=== PATIENT | female | born 1935 | race Hispanic/Latino ===

== ENCOUNTER 2017-08-23 11:36 | Inpatient (IN) | payer MEDICARE, OTHER ==
--- NOTE | 2017-08-23 11:46 | ED PDOC ---
Arrival/HPI - General Time Seen by Provider: 08/23/17 11:41 Historian: Patient - History of Present Illness Narrative History of Present Illness (Text): 08/23/17 11:46 A 81 year old female, whose past medical history includes hypertension, emphysema, right knee replacement, presents to the emergency department complaining of left hip and groin pain after mechanical fall prior to arrival. Patient reports she tripped and fell injuring her left side. She notes difficulty ambulating after fall. Patient denies any other injuries, loss of consciousness, head trauma, headache, dizziness, neck pain, nausea, vomiting, abdominal pain, back pain, chest pain, shortness of breath or any other complaints. PMD: Dr. Priest Time/Duration: Prior to Arrival Context: Tripped Past Medical History - Provider Review Nursing Documentation Reviewed: Yes - Cardiac Hx Hypertension: Yes - Pulmonary Hx Respiratory Disorders: Yes Hx Emphysema: Yes (" I NEVER SMOKED.") - Neurological Hx Neurological Disorder: No - HEENT Hx HEENT Disorder: No - Renal Hx Renal Disorder: No - Endocrine/Metabolic Hx Endocrine Disorders: No - Hematological/Oncological Hx Blood Disorders: No - Integumentary Hx Dermatological Disorder: No - Musculoskeletal/Rheumatological Hx Musculoskeletal Disorders: Yes Hx Arthritis: Yes Hx Degenerative Joint Disease: Yes Other/Comment: HX: DJD RIGHT KNEE - Gastrointestinal Hx Gastrointestinal Disorders: Yes Hx Gall Bladder Disease: Yes Hx Gastroesophageal Reflux: Yes - Genitourinary/Gynecological Hx Genitourinary Disorders: Yes Other/Comment: HX: FIBROID UTERUS - Psychiatric Hx Psychophysiologic Disorder: No Hx Emotional Abuse: No Hx Physical Abuse: No Hx Substance Use: No - Surgical History Hx Appendectomy: Yes Hx Cholecystectomy: Yes Hx Hysterectomy: Yes (PARTIAL HYSTERECTOMY) - Anesthesia Hx Anesthesia: Yes Hx Anesthesia Reactions: Yes (N/V) Hx Malignant Hyperthermia: No - Suicidal Assessment Feels Threatened In Home Enviroment: No Family/Social History - Physician Review Nursing Documentation Reviewed: Yes Family/Social History: No Known Family HX Smoking Status: Never Smoked Hx Alcohol Use: No Hx Substance Use: No Allergies/Home Meds Allergies/Adverse Reactions: Allergies No Known Allergies Allergy (Verified 08/23/17 12:03) Home Medications: Home Meds Medication Instructions Recorded Confirmed Esomeprazole Magnesium [Nexium] 40 mg PO DAILY 03/30/15 08/23/17 Furosemide [Lasix] 40 mg PO DAILY 03/30/15 08/23/17 Albuterol HFA [Ventolin HFA 90 2 puff IH DAILY 05/17/16 08/23/17 mcg/actuation (8 g)] Bisoprolol [Zebeta] 5 mg PO BID 05/17/16 08/23/17 Budesonide [Pulmicort Flexhaler] 180 mcg IH DAILY 05/17/16 08/23/17 Multivitamin [Multivitamins] 1 each PO DAILY 05/17/16 08/23/17 Temazepam [Restoril] 30 mg PO HS 05/17/16 08/23/17 Valsartan [Diovan] 160 mg PO DAILY 05/17/16 08/23/17 Review of Systems - Physician Review All systems were reviewed & negative as marked: Yes - Review of Systems Respiratory: absent: SOB Cardiovascular: absent: Chest Pain Gastrointestinal: absent: Abdominal Pain, Nausea, Vomiting Musculoskeletal: Other (left hip and groin pain). absent: Back Pain, Neck Pain Neurological: absent: Headache, Dizziness Physical Exam Vital Signs Reviewed: Yes Vital Signs Temp Pulse Resp BP Pulse Ox 08/23/17 11:44 97.4 F L 64 14 153/73 H 99 Temperature: Afebrile Blood Pressure: Hypertensive Pulse: Regular Respiratory Rate: Normal Appearance: Positive for: Well-Appearing, Non-Toxic, Comfortable Pain Distress: None Mental Status: Positive for: Alert and Oriented X 3 - Systems Exam Head: Present: Atraumatic, Normocephalic Pupils: Present: PERRL Extroacular Muscles: Present: EOMI Conjunctiva: Present: Normal Mouth: Present: Moist Mucous Membranes Neck: Present: Normal Range of Motion Respiratory/Chest: Present: Clear to Auscultation, Good Air Exchange. No: Respiratory Distress, Accessory Muscle Use Cardiovascular: Present: Regular Rate and Rhythm, Normal S1, S2. No: Murmurs Abdomen: Present: Normal Bowel Sounds. No: Tenderness, Distention, Peritoneal Signs Back: Present: Normal Inspection Upper Extremity: Present: Normal Inspection. No: Cyanosis, Edema Lower Extremity: Present: NORMAL PULSES, Tenderness (Left hip and groin tenderness), Neurovascularly Intact, Other (Left leg shortened and internally rotated). No: Edema, CALF TENDERNESS, Normal ROM (pain with movment), Swelling , Erythema, Temperature Abnormalties Neurological: Present: GCS=15, CN II-XII Intact, Speech Normal Skin: Present: Warm, Dry, Normal Color. No: Rashes Psychiatric: Present: Alert, Oriented x 3, Normal Insight, Normal Concentration Medical Decision Making ED Course and Treatment: 08/23/17 11:46 Impression: A 81 year old female with left hip and groin pain after mechanical fall Plan: -- Left hip xray -- Toradol -- Reassess and disposition Progress Notes: - RAD Interpretation Radiology Orders: 08/23/17 11:47 HIP MIN 2V W/ PELVIS LT [RAD] Stat - Medication Orders Current Medication Orders: Discontinued Medications Ketorolac Tromethamine (Toradol) 15 mg IVP STAT STA Stop: 08/23/17 11:49 Last Admin: 08/23/17 12:28 Dose: 15 mg MAR Pain Assessment Document 08/23/17 12:28 SF (Rec: 08/23/17 12:28 SF [id number] Pain Reassessment Is this a pain reassessment? Yes Sleep Is patient sleeping during reassessment? No Presence of Pain Presence of Pain Yes IVP Administration Document 08/23/17 12:28 SF (Rec: 08/23/17 12:28 SF [facility] [id number]) Charges for Administration # of IVP Administrations 1 Disposition/Present on Arrival - Present on Arrival Any Indicators Present on Arrival: No History of DVT/PE: No History of Uncontrolled Diabetes: No Urinary Catheter: No History Surgical Site Infection Following: None - Disposition Have Diagnosis and Disposition been Completed?: Yes Diagnosis: Pelvis fracture Disposition: HOME/ ROUTINE Disposition Time: 13:30 Patient Plan: Discharge Condition: STABLE Referrals: [facility], [Non-Staff] - Follow up with primary
--- NOTE | 2017-08-23 13:26 | RAD ---
PROCEDURE: Left Hip and pelvis X-ray Radiographs. HISTORY: fall COMPARISON: None. FINDINGS: BONES: There is a displaced subcapital hip fracture on the left. JOINTS: Normal. SOFT TISSUES: Normal. OTHER FINDINGS: None. IMPRESSION: Displaced subcapital hip fracture on the left
[2017-08-23 14:42] LABS: BASO # 0.01 K/mm3 (0.0-2.0); BASO % 0.1 % (0.0-3.0); EOS % 0.1 % (1.5-5.0); GRAN # 11.06 (1.4-6.5); GRAN % 88.4 % (50.0-68.0); HEMOGLOBIN 13.4 g/dL (12.0-16.0); LYMPH % 7.9 % (22.0-35.0); MEAN CELL VOLUME 93.8 fl (80.0-105.0); MEAN CORPUSCULAR HEMOGLOBIN 29.7 pg (25.0-35.0); MEAN CORPUSCULAR HGB CONC 31.7 g/dl (31.0-37.0); MEAN PLATELET VOLUME 9.7 fl (7.0-11.0); MONO # 0.4 (0.1-0.6); MONO % 3.5 % (1.0-6.0); RBC 4.51 10^6/uL (3.5-6.1); RED CELL DISTRIBUTION WIDTH 14.6 % (11.5-14.5); URINE BILIRUBIN NEGATIVE (NEGATIVE); URINE BLOOD MODERATE (NEGATIVE); URINE GLUCOSE (UA) NEGATIVE (NEGATIVE); URINE LEUKOCYTE ESTERASE NEGATIVE Leu/uL (NEGATIVE); URINE NITRATE NEGATIVE (NEGATIVE); URINE PROTEIN NEGATIVE mg/dL (<30 mg/dL); URINE UROBILINOGEN 0.2 E.U./dL (<1 E.U./dL); WHITE BLOOD COUNT 12.5 10^3/ul (4.5-11.0)
[2017-08-23 14:46] LABS: URINE APPEARANCE CLEAR (CLEAR); URINE COLOR YELLOW (YELLOW)
[2017-08-23 14:52] LABS: ALB/GLOB RATIO 1.4 (1.1-1.8); ALBUMIN 4.1 g/dL (3.0-4.8); ALT/SGPT 33 U/L (7-56); AST/SGOT 25 U/L (14-36); BLOOD UREA NITROGEN 24 mg/dL (7-21); CALCIUM 9.9 mg/dL (8.4-10.5); GFR AFRICAN-AMERICAN > 60; GFR NON-AFRICAN AMERICAN 53
[2017-08-23 14:57] LABS: INR 0.89 (0.93-1.08); PROTHROMBIN TIME 10.1 SECONDS (9.4-12.5)
[2017-08-23 15:07] LABS: URINE RBC 0 - 2 /hpf (0-2); URINE WBC NEGATIVE /hpf (0-6)
[2017-08-23] MEDS ORDERED: Potassium Chloride 20 mEq ER Tab PO STA (15:18)
[2017-08-23] MEDS: Pantoprazole 20 mg EC Tab PO SCH (16:06)
[2017-08-23 16:14] VITALS: BMI 27.4
[2017-08-23] MEDS ORDERED: Pneumococcal 23-Valent Vaccine IM ONE (16:14)
[2017-08-23] MEDS ORDERED: Influenza Vaccine 60 mcg/0.5 mL SYR (4YR UP) IM ONE (16:14)
--- NOTE | 2017-08-23 16:19 | RAD ---
HISTORY: fall COMPARISON: 05/08/2016 FINDINGS: LUNGS: No active pulmonary disease. PLEURA: No significant pleural effusion identified, no pneumothorax apparent. CARDIOVASCULAR: Normal. OSSEOUS STRUCTURES: No significant abnormalities. VISUALIZED UPPER ABDOMEN: Normal. OTHER FINDINGS: None. IMPRESSION: No active disease.
--- NOTE | 2017-08-23 17:01 | CT ---
PROCEDURE: CT of the left hip HISTORY: left hip: left hip fracture COMPARISON: Plain film same day TECHNIQUE: Radiation dose: Total exam DLP = 393 mGy-cm. This CT exam was performed using one or more of the following dose reduction techniques: Automated exposure control, adjustment of the mA and/or kV according to patient size, and/or use of iterative reconstruction technique. FINDINGS: There is a displaced angulated subcapital hip fracture on the left. There is no evidence of acetabular fracture. There is no soft tissue hematoma. IMPRESSION: There is a displaced angulated subcapital hip fracture on the left.
[2017-08-23] MEDS: Morphine 2 mg/ml ISec IVP PRN ×2 (17:08→22:30)
[2017-08-23] MEDS: Sodium Chloride 0.9% 1,000 ML IV SCH (17:08)
--- NOTE | 2017-08-23 18:27 | CARD ---
APPROVED REPORT EKG Measurement Heart [id number] <Conclusion> Sinus bradycardia Septal infarct, age undetermined Abnormal ECG
[2017-08-23] MEDS: Albuterol-Ipratrop 3 mg / 0.5 (3 ml) UD IH SCH (19:45)
[2017-08-23] MEDS: Budesonide 0.25 mg/2 ml Inhal Susp UD IH SCH (19:45)
--- NOTE | 2017-08-23 23:48 | HP ---
HISTORY OF PRESENT ILLNESS: The patient is in the emergency room. The patient was brought in by the ambulance to the emergency room. She had a fall in her own bedroom and she fractured her left hip. The patient is in pain. The patient was unable to get out of the floor, but she was able to call for help. She was evaluated in the emergency room. The x-ray shows evidence of fracture of the left hip. The patient's orthopedic surgeon is Dr. Reddy. Dr. Reddy is the orthopedic surgeon, he was notified, the patient is admitted to medical floor. PAST MEDICAL HISTORY: Significant that she has a history of hypertension, chronic obstructive lung disease, gastritis. The patient has history of uterine fibroids. The patient also has a history of recurrent respiratory infections. The patient was treated in the past for total knee replacement on the right side. The patient was on Lovenox post surgery. The patient is not on any antibiotics at this time. PHYSICAL EXAMINATION: GENERAL: She is lying in bed, comfortable. She is pleasant, but she stated that she has pain, for which she has received pain medication. The patient is conscious, rational, oriented. The patient is able to answer all questions. HEAD: Normocephalic. NECK: Carotid pulses are present. The patient's thyroid is not enlarged clinically. LUNGS: Trachea is central. Breath sounds are vesicular. Breath sounds are diminished bilaterally. No rhonchi and no crepitations at this time. HEART: Normal sinus rhythm. S1, S2 present. No murmurs. VITAL SIGNS: The patient's pulse is 64, blood pressure 153/73, respirations are 14, O2 sat 99% on room air. ABDOMEN: Soft. Liver and spleen are not palpable. No ascites. No masses. No tenderness. WING SCORER: She is conscious, rational, oriented as mentioned. The patient's cranial nerves are intact from II through XII. She has sense of smell. Motor and sensory functions are within normal limits. The patient's cerebellar functions were within normal limits prior to the fall. The patient was ambulating pretty well. LABORATORY DATA: Blood work done in the emergency room shows that the hemoglobin [place] 13.4[place] [address], differential 88% polymorphonuclear leukocytes. The patient's chemistry; the sodium is 141, potassium is 3.3. The patient's BUN is 34, creatinine is 1.0. All other chemical parameters are within the normal range. Chest x-ray is clear. The patient's EKG is normal sinus rhythm, has no acute findings. The patient's coagulation study, the PT/INR is within normal limits. IMPRESSION AND PLAN: The patient is evaluated and the patient is medically cleared for hip surgery. The patient will be seen by the orthopedic surgeon and the procedure will be performed. At this time, the patient will be placed on her medications. The patient is on multiple medications; 1. The patient takes losartan 100 mg daily. 2. The patient is on albuterol q. 6 hours p.r.n. inhalation therapy. 3. The patient is on Pulmicort twice a day. 4. The patient is on Lovenox, which is given to the patient to prevent deep venous thrombosis. 5. Lasix 40 mg daily. 6. Potassium chloride 10 mEq. We will increase it to 20 mEq daily because the potassium is low. 7. The patient will be placed on Protonix 20 mg IV daily. 8. The patient will be on 2 g sodium heart-healthy diet. At the time of the surgery, the patient's food will be restricted. Overall prognosis is guarded. Condition is clinically stable. We will follow after the procedure hopefully in the morning. Maya Priest MD
[2017-08-24] MEDS: Albuterol-Ipratrop 3 mg / 0.5 (3 ml) UD IH SCH ×4 (02:51→20:23)
[2017-08-24] MEDS: Pantoprazole 20 mg EC Tab PO SCH ×2 (05:06→17:06)
[2017-08-24] MEDS: Sodium Chloride 0.9% 1,000 ML IV SCH ×2 (05:07→17:07)
[2017-08-24] MEDS ORDERED: Bupivacaine 0.5% Inj(30mL) ONE (07:22)
[2017-08-24] MEDS ORDERED: Succinylcholine 200 mg/10 ml Inj IV ONE (07:39)
[2017-08-24] MEDS ORDERED: Rocuronium 10 mg/ml (5 ml) ONE (07:39)
[2017-08-24] MEDS ORDERED: Propofol 10 mg/ml Inj (20 ML) ONE (07:39)
[2017-08-24] MEDS ORDERED: Lidocaine 2% Inj (20ml) ONE (07:40)
[2017-08-24] MEDS ORDERED: Etomidate 20 mg/10ml Inj IV ONE (07:40)
[2017-08-24] MEDS: Budesonide 0.25 mg/2 ml Inhal Susp UD IH SCH ×2 (07:42→20:26)
--- NOTE | 2017-08-24 07:45 | CP.PCM.CON ---
History of Present Illness - History of Present Illness History of Present Illness: Orthopedic consultation for Dr. Reddy 81 F complains of left hip pain after falling at home. Patient denies LOC, headache, back pain, neck pain or pain in other extremities. Denies numbness and tingling, chest pain or SOB. NKDA Review of Systems - Review of Systems All systems: reviewed and no additional remarkable complaints except - Cardiovascular Cardiovascular: As Per HPI - Respiratory Respiratory: As Per HPI - Musculoskeletal Musculoskeletal: As Per HPI - Neurological Neurological: As Per HPI - Hematologic/Lymphatic Hematologic: absent: As Per HPI, Easy Bleeding, Easy Bruising, Lymphadenopathy, Other Past Patient History - Infectious Disease Hx of Infectious Diseases: None - Past Medical History & Family History Past Medical History?: Yes Past Family History: Reviewed and not pertinent - Past Social History Smoking Status: Never Smoked - CARDIAC Hx Cardiac Disorders: Yes Hx Hypertension: Yes - PULMONARY Hx Respiratory Disorders: Yes Hx Chronic Obstructive Pulmonary Disease (COPD): Yes Hx Emphysema: Yes (" I NEVER SMOKED." 2ND HAND SMOKE) - NEUROLOGICAL Hx Neurological Disorder: No - HEENT Hx HEENT Problems: Yes (WEARS RX GLASSES) - RENAL Hx Chronic Kidney Disease: No - ENDOCRINE/METABOLIC Hx Endocrine Disorders: No - HEMATOLOGICAL/ONCOLOGICAL Hx Blood Disorders: No - INTEGUMENTARY Hx Dermatological Problems: No - MUSCULOSKELETAL/RHEUMATOLOGICAL Hx Musculoskeletal Disorders: Yes Hx Arthritis: Yes Hx Degenerative Joint Disease: Yes Hx Falls: Yes (08-23-17) Hx Fractures: Yes (LEFT HIP FX 08-23-17) Hx Osteoarthritis: Yes Other/Comment: HX: DJD RIGHT KNEE - GASTROINTESTINAL Hx Gastrointestinal Disorders: Yes (CONSTIPATION,APPENDECTOMY,POLYPECTOMY, TONSILLECTOMY) Hx Gall Bladder Disease: Yes (CHOLECYSTECTOMY) Hx Gastroesophageal Reflux: Yes - GENITOURINARY/GYNECOLOGICAL Hx Genitourinary Disorders: Yes (WEARS PADS.HAS URGENCY,FREQUENCY) Other/Comment: HX: FIBROID UTERUS - PSYCHIATRIC Hx Psychophysiologic Disorder: Yes (INSOMNIA) Hx Emotional Abuse: No Hx Physical Abuse: No Hx Substance Use: No - SURGICAL HISTORY Hx Surgeries: Yes - ANESTHESIA Hx Anesthesia Reactions: Yes (N/V) Hx Malignant Hyperthermia: No Meds Allergies/Adverse Reactions: Allergies Allergy/AdvReac Type Severity Reaction Status Date / Time No Known Allergies Allergy Verified 08/23/17 15:45 - Medications Medications: Current Medications Albuterol/Ipratropium (Duoneb 3 Mg/0.5 Mg (3 Ml) Ud) 3 ml IH [id number] [facility] Last Admin: 08/24/17 02:51 Dose: 3 ml Atenolol (Tenormin) 25 mg PO DAILY [facility] Last Admin: 08/24/17 06:43 Dose: 25 mg Budesonide (Pulmicort Respules) 0.25 mg IH [id number] [facility] Last Admin: 08/23/17 19:45 Dose: 0.25 mg Furosemide (Lasix) 40 mg PO DAILY [facility] Sodium Chloride (Sodium Chloride 0.9%) 1,000 mls @ 80 mls/hr IV .[id number] [facility] Last Admin: 08/24/17 05:07 Dose: 80 mls/hr Losartan Potassium (Cozaar) 100 mg PO DAILY [facility] Morphine Sulfate (Morphine) 2 mg IVP Q4H PRN PRN Reason: Pain, moderate (4-7) Last Admin: 08/23/17 22:30 Dose: 2 mg Pantoprazole Sodium (Protonix Ec Tab) 20 mg PO 0600,1600 [facility] Last Admin: 08/24/17 05:06 Dose: Not Given Potassium Chloride (Klor-Con 10) 10 meq PO DAILY [facility] Zolpidem Tartrate (Ambien) 5 mg PO HS PRN; Protocol PRN Reason: Insomnia Physical Exam - Constitutional Appears: Well, No Acute Distress - Head Exam Head Exam: ATRAUMATIC, NORMAL INSPECTION - Neck Exam Neck exam: Positive for: Full Rom, Normal Inspection - Respiratory Exam Respiratory Exam: NORMAL BREATHING PATTERN - Cardiovascular Exam Additional comments: DP PT pulses + - Expanded Lower Extremities Exam Left Hip exam: external rotation, shortening, swelling Knee exam: normal inspection Lower Leg Exam: normal inspection Ankle exam: FULL ROM, NORMAL INSPECTION Neuro vacular tendon exam: no vascular compromise (sensation intact, calf soft nontender, NVI distally) - Back Exam Back exam: NORMAL INSPECTION Additional comments: NTTP - Neurological Exam Neurological exam: Alert, Oriented x3 - Psychiatric Exam Psychiatric exam: Normal Affect, Normal Mood - Skin Skin Exam: Dry, Intact, Normal Color, Warm Results - Vital Signs Recent Vital Signs: Last Vital Signs Temp 98.9 F 08/24/17 06:50 Pulse 77 08/24/17 06:50 Resp 18 08/24/17 06:50 BP 149/68 08/24/17 06:50 Pulse Ox 93 L 08/24/17 06:50 - Labs Result Diagrams: 08/23/17 14:30 08/23/17 14:30 Labs: Laboratory Results - last 24 hr 08/23/17 08/23/17 08/23/17 14:15 14:30 14:30 WBC 12.5 H D RBC 4.51 Hgb 13.4 Hct 42.3 MCV 93.8 MCH 29.7 MCHC 31.7 RDW 14.6 H Plt Count 189 MPV 9.7 Gran % 88.4 H Lymph % (Auto) 7.9 L Noble % (Auto) 3.5 Eos % (Auto) 0.1 L Baso % (Auto) 0.1 Gran # 11.06 H Lymph # (Auto) 1.0 L Noble # (Auto) 0.4 Eos # (Auto) 0.0 Baso # (Auto) 0.01 PT 10.1 INR 0.89 L Sodium Potassium Chloride Carbon Dioxide Anion Gap BUN Creatinine Est GFR ( Amer) Est GFR (Non-Af Amer) Random Glucose Calcium Total Bilirubin AST ALT Alkaline Phosphatase Total Protein Albumin Globulin Albumin/Globulin Ratio Urine Color Urine Appearance Urine pH Ur Specific [place] Urine Protein Urine Glucose (UA) Urine Ketones Urine Blood Urine Nitrate Urine Bilirubin Urine Urobilinogen Ur Leukocyte Esterase Urine RBC Urine WBC Ur Epithelial Cells Blood Type B POSITIVE Antibody Screen Negative Crossmatch See Detail BBK History Checked Patient has bt 08/23/17 08/23/17 14:30 14:30 WBC RBC Hgb Hct MCV MCH MCHC RDW Plt Count MPV Gran % Lymph % (Auto) Noble % (Auto) Eos % (Auto) Baso % (Auto) Gran # Lymph # (Auto) Noble # (Auto) Eos # (Auto) Baso # (Auto) PT INR Sodium 141 Potassium 3.3 L Chloride 101 Carbon Dioxide 29 Anion Gap 15 BUN 24 H Creatinine 1.0 Est GFR ( Amer) > 60 Est GFR (Non-Af Amer) 53 Random Glucose 108 Calcium 9.9 Total Bilirubin 0.6 AST 25 ALT 33 Alkaline Phosphatase 92 Total Protein 6.9 Albumin 4.1 Globulin 2.8 Albumin/Globulin Ratio 1.4 Urine Color Yellow Urine Appearance Clear Urine pH 6.0 Ur Specific [place] <= 1.005 Urine Protein Negative Urine Glucose (UA) Negative Urine Ketones Negative Urine Blood Moderate H Urine Nitrate Negative Urine Bilirubin Negative Urine Urobilinogen 0.2 Ur Leukocyte Esterase Negative Urine RBC 0 - 2 Urine WBC Negative Ur Epithelial Cells None Blood Type Antibody Screen Crossmatch BBK History Checked - Impressions Impression: atient Name / ID : RANULFO Cadena / [id number] Exam Date : 08/23/2017 16:23:45 ( Approved ) Study Comment : Sex / Age : F / [id number] Creator : Ori Perez MD Dictator : Ori Perez MD Rn Rehabilitation : All Around Presser : Ori Perez MD Approver2 : Report Date : 08/23/2017 16:59:28 My Comment : PROCEDURE: CT of the left hip HISTORY: left hip: left hip fracture COMPARISON: Plain film same day TECHNIQUE: Radiation dose: Total exam DLP = 393 mGy-cm. This CT exam was performed using one or more of the following dose reduction techniques: Automated exposure control, adjustment of the mA and/or kV according to patient size, and/or use of iterative reconstruction technique. FINDINGS: There is a displaced angulated subcapital hip fracture on the left. There is no evidence of acetabular fracture. There is no soft tissue hematoma. IMPRESSION: There is a displaced angulated subcapital hip fracture on the left. Assessment & Plan (1) Closed displaced fracture of left femoral neck Assessment and Plan: The risks benefits and alternatives were discussed. Patient verbalizes understanding and would like to proceed with a left hip hemiarthroplasty. NPO T&C labs reviewed patient medically optimized as per primary medical doctor for OR for left hip hemiarthroplasty Discussed with Dr. Reddy, agrees with above Status: Acute
[2017-08-24] MEDS ORDERED: ePHEDrine 50 mg/ml Inj ONE (07:58)
[2017-08-24] MEDS ORDERED: Neostigmine Methylsulfate 3mg/3ml Syringe IV ONE (09:11)
[2017-08-24] MEDS ORDERED: Glycopyrrolate 0.2 mg/ml (2ml vial) ONE (09:12)
[2017-08-24] MEDS ORDERED: Enoxaparin 40 mg Syringe SC SCH (10:00)
[2017-08-24] MEDS ORDERED: Morphine 2 mg/ml ISec IVP PRN (10:16)
--- NOTE | 2017-08-24 10:21 | PCM.SURG1 ---
Surgeon's Initial Post Op Note - Surgeon's Notes Surgeon: Dottie Reddy MD Arcade Game Technician: Guilherme Wang PA-C and Zaria Caceres PA-C Type of Anesthesia: General Endo Anesthesia Administered By: Dr. Olivarez Pre-Operative Diagnosis: Left hip femoral neck fx Operative Findings: see full operative note Post-Operative Diagnosis: same Operation Performed: Left hip hemiarthroplasty Specimen/Specimens Removed: femoral head Estimated Blood Loss: EBL {In ML}: 150 Blood Products Given: N/A Drains Used: No Drains Post-Op Condition: Fair Date of Surgery/Procedure: 08/24/17 Time of Surgery/Procedure: 10:21
[2017-08-24] MEDS ORDERED: oxyCODONE 5 mg Immediate Release Tab PO PRN (10:29)
[2017-08-24] MEDS ORDERED: Lactated Ringer's 1,000 ML IV SCH (10:30)
[2017-08-24] MEDS: Potassium Chloride 10 mEq ER Tab PO SCH (11:02)
--- NOTE | 2017-08-24 11:25 | RAD ---
PROCEDURE: Pelvis and left hip HISTORY: pt in PACU, s/p bipolar COMPARISON: TECHNIQUE: Two views FINDINGS: There is a new left hip prosthesis in satisfactory position. No complicating factors IMPRESSION: As above
[2017-08-24 12:40] LABS: BASO # 0.04 K/mm3 (0.0-2.0); BASO % 0.3 % (0.0-3.0); EOS # 0.1 (0.0-0.7); GRAN # 8.68 (1.4-6.5); GRAN % 75.7 % (50.0-68.0); HEMOGLOBIN 11.2 g/dL (12.0-16.0); LYMPH # 1.7 (1.2-3.4); LYMPH % 14.5 % (22.0-35.0); MEAN CELL VOLUME 94.5 fl (80.0-105.0); MEAN CORPUSCULAR HEMOGLOBIN 29.3 pg (25.0-35.0); MEAN PLATELET VOLUME 9.4 fl (7.0-11.0); MONO % 8.5 % (1.0-6.0); RBC 3.82 10^6/uL (3.5-6.1); RED CELL DISTRIBUTION WIDTH 14.9 % (11.5-14.5); WHITE BLOOD COUNT 11.5 10^3/ul (4.5-11.0)
[2017-08-24 14:01] LABS: ALB/GLOB RATIO 1.3 (1.1-1.8); ALBUMIN 2.9 g/dL (3.0-4.8); CALCIUM 8.9 mg/dL (8.4-10.5)
--- NOTE | 2017-08-24 14:25 | PN ---
DATE: LOCATION: The patient is in [facility] in [place], room 566, bed 1. SUBJECTIVE: The patient was admitted with fracture of the left hip. PHYSICAL EXAMINATION VITAL SIGNS: This morning, pulse is 77, blood pressure 150/70, the patient's respirations are 18, O2 sat is 93% on room air, temperature 98.9. HEAD: Normocephalic. NECK: Thyroid is not enlarged. JVP is flat. LUNGS: Trachea is central. Breath sounds are vesicular. No adventitious sounds. HEART: Normal sinus rhythm. S1 and S2 present. No murmurs. ABDOMEN: Soft. Liver and spleen not palpable. No tenderness, no masses. CENTRAL NERVOUS SYSTEM: Conscious, rational and oriented. No focal deficits are noted. LABORATORY DATA: The patient's blood work that was done yesterday was reviewed. There is no change. The patient's chemistry is mostly within normal limit, potassium is 3.3. The patient was on supplement potassium. The patient's x-rays of the chest, the EKG were all reviewed. The patient scheduled to go to the OR this morning and Dr. Reddy is going to do surgery on the left hip. The patient will be followed up later. Maya Priest MD
[2017-08-24] MEDS ORDERED: Benzocaine/Menthol (Cepacol) Lozenge MT PRN (17:05)
[2017-08-24] MEDS: ceFAZolin 2 GM in Sodium Chloride 0.9% 100 ML IVPB SCH (18:10)
--- NOTE | 2017-08-24 21:24 | OP ---
PROCEDURE DATE: 08/24/2017 PREOPERATIVE DIAGNOSIS: Left hip femoral neck fracture. POSTOPERATIVE DIAGNOSIS: Left hip femoral neck fracture. PROCEDURE: Left hip hemiarthroplasty. SURGEON: Julio Reddy MD ASSISTANTS: Dr. Reddy is assisted by Jody Dalal, the physician visitor use assistant and Titus Caceres, the physician visitor use assistant. Both physician assistants were scrubbed and present throughout the entire case, and assisted in patient positioning, wound closure and retraction. TYPE OF ANESTHESIA: General. COMPLICATIONS: None. ESTIMATED BLOOD LOSS: 150 mL. IMPLANT: Biomet hip hemiarthroplasty bipolar. INDICATION FOR PROCEDURE: This is an 81-year-old female who presented status post fall with left hip pain and inability to ambulate. Clinical and radiographic examination was consistent with a displaced left hip subcapital femoral neck fracture. Recommendations were for left hip hemiarthroplasty once the patient was medically optimized. The risks, benefits and alternatives of the procedure were discussed with the patient including infection, hip instability and limb length discrepancy, and informed consent was obtained. DESCRIPTION OF PROCEDURE: After the surgical site was signed and verified in the preoperative holding area, the patient was taken to the operating room and placed supine on the operating room table. After administration of general anesthesia, the patient received 2 g of Ancef IV. The patient was positioned in the lateral decubitus position with the left hip up towards the ceiling. Venodyne boot was placed on the nonoperative extremity. Care was taken to make sure all bony prominences and nerves were well padded and protected. An axillary roll was placed in the right axilla. The left lower extremity was prepped and draped in the usual sterile fashion. The bony landmarks were identified about the left hip and approximately 8 cm curvilinear incision was made over the hip joint. Soft tissue was dissected sharply down to the fascia, the fascia was incised and Charnley retractor was placed. Short external rotators were identified, tagged, and resected off the proximal femur. T-type capsulotomy was performed and the hip was dislocated. A Corkscrew was used to remove the femoral head and this was passed off the field and measured. A femoral neck resection was performed. The acetabulum was inspected for any debris or any fractures. Satisfied, the medullary canal of the proximal femur was reamed and broached sequentially to allow for a 12 mm Press-Fit low profile stem. With a trial stem in place, the calcar was planed and a trial neck and head was placed, and the hip was reduced. The hip was taken through a range of motion and was noted to be stable with approximately equal limb lengths. At this point, the hip was dislocated and the trial components were removed. The hip joint was pulse lavaged with antibiotic saline solution. The bony surfaces were dried. The actual stem was inserted and impacted into place being careful to maintain proper version. The actual head was then impacted over the stem and the hip was reduced. The hip was again taken through a range of motion and was noted to be stable with approximately equal limb lengths. At this point, the wound was irrigated and the capsule was repaired to bone using #1 Vicryl suture. The short external rotators were also repaired to bone. The deep fascia was closed using #1 Vicryl suture, the subcutaneous tissue was closed using 0 Vicryl and 2-0 Vicryl suture, and the skin was closed using narcisa. A sterile dressing was applied and an abduction pillow was placed. The patient was transferred supine, awakened and taken to recovery room in stable condition. Julio Reddy MD
[2017-08-25] MEDS: ceFAZolin 2 GM in Sodium Chloride 0.9% 100 ML IVPB SCH (00:10)
[2017-08-25] MEDS: Albuterol-Ipratrop 3 mg / 0.5 (3 ml) UD IH SCH ×4 (02:16→20:30)
[2017-08-25] MEDS: Pantoprazole 20 mg EC Tab PO SCH (05:58)
[2017-08-25 06:49] LABS: BASO # 0.04 K/mm3 (0.0-2.0); BASO % 0.5 % (0.0-3.0); EOS # 0.2 (0.0-0.7); GRAN # 5.3 (1.4-6.5); HEMOGLOBIN 9.7 g/dL (12.0-16.0); LYMPH # 1.1 (1.2-3.4); LYMPH % 15.5 % (22.0-35.0); MEAN CELL VOLUME 93.6 fl (80.0-105.0); MEAN CORPUSCULAR HEMOGLOBIN 29.7 pg (25.0-35.0); MEAN CORPUSCULAR HGB CONC 31.7 g/dl (31.0-37.0); MEAN PLATELET VOLUME 9.2 fl (7.0-11.0); MONO # 0.7 (0.1-0.6); RBC 3.27 10^6/uL (3.5-6.1); RED CELL DISTRIBUTION WIDTH 14.9 % (11.5-14.5); WHITE BLOOD COUNT 7.4 10^3/ul (4.5-11.0)
[2017-08-25] MEDS: Budesonide 0.25 mg/2 ml Inhal Susp UD IH SCH ×2 (07:58→20:30)
--- NOTE | 2017-08-25 08:38 | PN ---
DATE: SUBJECTIVE: The patient is in room 566, bed 1. She was admitted with a hip fracture, left-sided hip. The patient had surgery on that hip by Dr. Reddy. The patient is seen this morning. She is comfortable. She has no complaint excepting that she is found to have temperature of 100.6 since last night. PHYSICAL EXAMINATION VITAL SIGNS: The pulse is 76, blood pressure 140/80, respirations are 16. LUNGS: Clinically clear. HEART: Normal sinus rhythm. S1 and S2 present. ABDOMEN: Soft. Liver and spleen not palpable. No tenderness. No masses. LOW PRESSURE BOILER TENDER: No focal deficit. EXTREMITIES: The patient has the wound on the left hip area consistent with surgery for fractured hip. LABORATORY DATA: The patient's laboratory finding last night was confusing because the liver enzymes were elevated, but might be a mix-up. We will repeat the blood work. The patient's CBC, the hemoglobin is 9.7, to start with the hemoglobin was 13.4. At this time, we will have to repeat the patient's blood work because the blood work is being mixed-up abruptly. ASSESSMENT AND PLAN: The patient's overall condition is stable. The patient will be out of bed today. We will continue current management with diet and the medications. The patient has respiratory treatment for chronic obstructive pulmonary disease, blood pressure medications and also the patient gets a medicine for gastritis. Maya Priest MD
--- NOTE | 2017-08-25 10:15 | CP.PCM.PN ---
Subjective - Date & Time of Evaluation Date of Evaluation: 08/25/17 Time of Evaluation: 10:07 - Subjective Subjective: Patient POD #1 s/p L hip hemiarthroplasty. Patient AAOx3, sitting up in chair with hip abduction pillow in place. Patient denies any significant pain, states pain is controlled. VSS max temp 100.7, temp now 100.6 WBC: 7.4 Hgb: 9.7 L hip: dressings dry and intact. Patient can actively perform plantar and dorsiflexion Thigh and calf soft nontender NVI distally POD #1 s/p L hip hemiarthroplasty Cont DVT prophylaxis Cont PT Cont hip abduction pillow and posterior hip precautions UA was ordered Will monitor labs Plan to discharge Sunday to subacute rehab Objective - Vital Signs/Intake and Output Vital Signs (last 24 hours): Temp Pulse Resp BP Pulse Ox 100.6 F H 83 19 111/59 L 93 L 08/25/17 07:00 08/25/17 07:00 08/25/17 07:00 08/25/17 07:00 08/25/17 07:00 Intake and Output: 08/25/17 08/25/17 06:59 18:59 Intake Total 180 Output Total 300 Balance -120 - Medications Medications: Current Medications Acetaminophen (Tylenol 325mg Tab) 650 mg PO Q6H [facility] Last Admin: 08/25/17 05:55 Dose: 650 mg Albuterol/Ipratropium (Duoneb 3 Mg/0.5 Mg (3 Ml) Ud) 3 ml IH [id number] [facility] Last Admin: 08/25/17 07:57 Dose: 3 ml Atenolol (Tenormin) 25 mg PO DAILY [facility] Last Admin: 08/24/17 12:03 Dose: Not Given Benzocaine/Menthol (Cepacol Sore Throat) 1 bk MT Q2H PRN PRN Reason: Sore Throat Last Admin: 08/24/17 18:10 Dose: 1 bk Budesonide (Pulmicort Respules) 0.25 mg IH [id number] [facility] Last Admin: 08/25/17 07:58 Dose: 0.25 mg Docusate Sodium (Colace) 100 mg PO BID [facility] Last Admin: 08/24/17 17:07 Dose: 100 mg Enoxaparin Sodium (Lovenox) 40 mg SC DAILY [facility] PRN Reason: Protocol Furosemide (Lasix) 40 mg PO DAILY [facility] Last Admin: 08/24/17 11:03 Dose: Not Given Sodium Chloride (Sodium Chloride 0.9%) 1,000 mls @ 80 mls/hr IV .[id number] [facility] Last Admin: 08/24/17 17:07 Dose: 80 mls/hr Losartan Potassium (Cozaar) 100 mg PO DAILY [facility] Last Admin: 08/24/17 11:02 Dose: Not Given Morphine Sulfate (Morphine) 2 mg IVP Q15M PRN PRN Reason: Pain, moderate (4-7) Ondansetron HCl (Zofran Inj) 4 mg IVP Q6H PRN PRN Reason: Nausea/Vomiting Oxycodone HCl (Oxycodone Immediate Release Tab) 5 mg PO Q4H PRN PRN Reason: Pain, moderate (4-7) Pantoprazole Sodium (Protonix Ec Tab) 20 mg PO 0600,1600 [facility] Last Admin: 08/25/17 05:58 Dose: 20 mg Potassium Chloride (Klor-Con 10) 10 meq PO DAILY [facility] Last Admin: 08/24/17 11:02 Dose: Not Given Pregabalin (Lyrica) 50 mg PO BID [facility] Last Admin: 08/24/17 17:07 Dose: 50 mg Zolpidem Tartrate (Ambien) 5 mg PO HS PRN; Protocol PRN Reason: Insomnia - Labs Labs: 08/25/17 06:00 08/24/17 12:20 PT 10.1 SECONDS (9.4-12.5) 08/23/17 14:30 INR 0.89 (0.93-1.08) L 08/23/17 14:30 APTT 26.3 Seconds (25.1-36.5) 08/24/17 12:20 Assessment and Plan (1) Closed displaced fracture of left femoral neck Status: Acute
[2017-08-25 10:22] LABS: ALB/GLOB RATIO 1.1 (1.1-1.8); ALBUMIN 2.4 g/dL (3.0-4.8); ALT/SGPT 118 U/L (7-56); AST/SGOT 90 U/L (14-36); BLOOD UREA NITROGEN 19 mg/dL (7-21); CALCIUM 8.2 mg/dL (8.4-10.5); GFR AFRICAN-AMERICAN > 60; GFR NON-AFRICAN AMERICAN 53
[2017-08-25] MEDS: Potassium Chloride 10 mEq ER Tab PO SCH (10:23)
[2017-08-25] MEDS: Enoxaparin 40 mg Syringe SC SCH (10:26)
[2017-08-26] MEDS: Albuterol-Ipratrop 3 mg / 0.5 (3 ml) UD IH SCH ×5 (01:52→20:15)
[2017-08-26] MEDS: Pantoprazole 20 mg EC Tab PO SCH ×3 (06:38→17:26)
[2017-08-26] MEDS: Sodium Chloride 0.9% 1,000 ML IV SCH ×2 (07:11→15:48)
[2017-08-26 07:31] LABS: BASO # 0.01 K/mm3 (0.0-2.0); BASO % 0.2 % (0.0-3.0); EOS # 0.2 (0.0-0.7); EOS % 2.4 % (1.5-5.0); GRAN # 4.71 (1.4-6.5); GRAN % 73.7 % (50.0-68.0); HEMOGLOBIN 8.8 g/dL (12.0-16.0); LYMPH % 15.4 % (22.0-35.0); MEAN CELL VOLUME 93.3 fl (80.0-105.0); MEAN CORPUSCULAR HEMOGLOBIN 29.5 pg (25.0-35.0); MEAN CORPUSCULAR HGB CONC 31.7 g/dl (31.0-37.0); MEAN PLATELET VOLUME 9.9 fl (7.0-11.0); MONO # 0.5 (0.1-0.6); MONO % 8.3 % (1.0-6.0); RBC 2.98 10^6/uL (3.5-6.1); RED CELL DISTRIBUTION WIDTH 14.9 % (11.5-14.5); WHITE BLOOD COUNT 6.4 10^3/ul (4.5-11.0)
[2017-08-26 08:18] LABS: ALB/GLOB RATIO 1.1 (1.1-1.8); ALBUMIN 2.6 g/dL (3.0-4.8); ALT/SGPT 50 U/L (7-56); AST/SGOT 59 U/L (14-36); BLOOD UREA NITROGEN 15 mg/dL (7-21); CALCIUM 8.7 mg/dL (8.4-10.5); GFR AFRICAN-AMERICAN > 60; GFR NON-AFRICAN AMERICAN > 60
[2017-08-26] MEDS: Budesonide 0.25 mg/2 ml Inhal Susp UD IH SCH ×3 (08:36→20:15)
[2017-08-26] MEDS ORDERED: Sodium Chloride 0.9% 1,000 ML IV SCH (10:12)
[2017-08-26] MEDS: Enoxaparin 40 mg Syringe SC SCH (10:17)
[2017-08-26] MEDS: Potassium Chloride 10 mEq ER Tab PO SCH (10:17)
[2017-08-26 12:31] LABS: URINE APPEARANCE CLEAR (CLEAR); URINE BILIRUBIN NEGATIVE (NEGATIVE); URINE BLOOD NEGATIVE (NEGATIVE); URINE COLOR YELLOW (YELLOW); URINE GLUCOSE (UA) NEGATIVE (NEGATIVE); URINE LEUKOCYTE ESTERASE TRACE Leu/uL (NEGATIVE); URINE NITRATE NEGATIVE (NEGATIVE); URINE PROTEIN NEGATIVE mg/dL (<30 mg/dL); URINE UROBILINOGEN 0.2 E.U./dL (<1 E.U./dL)
[2017-08-26 12:43] LABS: URINE BACTERIA FEW (NEG); URINE RBC 0 - 2 /hpf (0-2)
--- NOTE | 2017-08-26 14:56 | CARD ---
APPROVED REPORT EKG Measurement Heart [id number] OK [id number] <Conclusion> Sinus tachycardia Otherwise normal ECG
[2017-08-26 18:31] VITALS: TEMP 98.7
--- NOTE | 2017-08-27 00:58 | CP.PCM.PN ---
Subjective - Date & Time of Evaluation Date of Evaluation: 08/27/17 Time of Evaluation: 00:57 - Subjective Subjective: Patient was seen at bedside. As per nurse her pulse was 120/min,Temp 99.7*F, BP 126/65., Hgb 8.8 Hct 27.8. Has no complaints. Denies palpitation, chest pain, sob, nausea, sweating. Medical record was reviewed. This 81 year old woman was admitted after she had a fall, sustained a left hip fracture. Has PMH of HTN, COPD, gastritis, uterine fibroid, recurrent respiratory infections, right total knee replacement. Objective - Vital Signs/Intake and Output Vital Signs (last 24 hours): Temp Pulse Resp BP Pulse Ox 98.7 F 110 H 16 120/60 95 08/26/17 18:31 08/26/17 18:31 08/26/17 18:31 08/26/17 18:31 08/26/17 16:00 Intake and Output: 08/26/17 08/27/17 18:59 06:59 Intake Total 600 Output Total 1 Balance 599 - Medications Medications: Current Medications Acetaminophen (Tylenol 325mg Tab) 650 mg PO Q6H [facility] Last Admin: 08/26/17 21:38 Dose: 650 mg Albuterol/Ipratropium (Duoneb 3 Mg/0.5 Mg (3 Ml) Ud) 3 ml IH [id number] [facility] Last Admin: 08/26/17 20:15 Dose: Not Given Atenolol (Tenormin) 25 mg PO DAILY [facility] Last Admin: 08/26/17 10:19 Dose: 25 mg Benzocaine/Menthol (Cepacol Sore Throat) 1 bk MT Q2H PRN PRN Reason: Sore Throat Last Admin: 08/24/17 18:10 Dose: 1 bk Budesonide (Pulmicort Respules) 0.25 mg IH [id number] [facility] Last Admin: 08/26/17 20:15 Dose: Not Given Docusate Sodium (Colace) 100 mg PO BID [facility] Last Admin: 08/26/17 17:29 Dose: 100 mg Enoxaparin Sodium (Lovenox) 40 mg SC DAILY [facility] PRN Reason: Protocol Last Admin: 08/26/17 10:17 Dose: 40 mg Furosemide (Lasix) 40 mg PO DAILY [facility] Last Admin: 08/26/17 10:17 Dose: 40 mg Sodium Chloride (Sodium Chloride 0.9%) 1,000 mls @ 125 mls/hr IV .Q8H [facility] Last Admin: 08/26/17 13:00 Dose: Not Given Losartan Potassium (Cozaar) 100 mg PO DAILY [facility] Last Admin: 08/26/17 10:17 Dose: 100 mg Morphine Sulfate (Morphine) 2 mg IVP Q15M PRN PRN Reason: Pain, moderate (4-7) Ondansetron HCl (Zofran Inj) 4 mg IVP Q6H PRN PRN Reason: Nausea/Vomiting Oxycodone HCl (Oxycodone Immediate Release Tab) 5 mg PO Q4H PRN PRN Reason: Pain, moderate (4-7) Pantoprazole Sodium (Protonix Ec Tab) 20 mg PO 0600,1600 [facility] Last Admin: 08/26/17 17:26 Dose: 20 mg Potassium Chloride (Klor-Con 10) 10 meq PO DAILY [facility] Last Admin: 08/26/17 10:17 Dose: 10 meq Pregabalin (Lyrica) 50 mg PO BID [facility] Last Admin: 08/26/17 17:29 Dose: 50 mg Zolpidem Tartrate (Ambien) 5 mg PO HS PRN; Protocol PRN Reason: Insomnia - Labs Labs: 08/26/17 07:00 08/26/17 07:00 PT 10.1 SECONDS (9.4-12.5) 08/23/17 14:30 INR 0.89 (0.93-1.08) L 08/23/17 14:30 APTT 26.3 Seconds (25.1-36.5) 08/24/17 12:20 Most Recent Lab Values WBC 6.4 10^3/ul (4.5-11.0) 08/26/17 07:00 RBC 2.98 10^6/uL (3.5-6.1) L 08/26/17 07:00 Hgb 8.8 g/dL (12.0-16.0) L 08/26/17 07:00 Hct 27.8 % (36.0-48.0) L 08/26/17 07:00 MCV 93.3 fl (80.0-105.0) 08/26/17 07:00 MCH 29.5 pg (25.0-35.0) 08/26/17 07:00 MCHC 31.7 g/dl (31.0-37.0) 08/26/17 07:00 RDW 14.9 % (11.5-14.5) H 08/26/17 07:00 Plt Count 113 10^3/uL (120.0-450.0) L 08/26/17 07:00 MPV 9.9 fl (7.0-11.0) 08/26/17 07:00 Gran % 73.7 % (50.0-68.0) H 08/26/17 07:00 Lymph % (Auto) 15.4 % (22.0-35.0) L 08/26/17 07:00 [place] % (Auto) 8.3 % (1.0-6.0) H 08/26/17 07:00 Eos % (Auto) 2.4 % (1.5-5.0) 08/26/17 07:00 Baso % (Auto) 0.2 % (0.0-3.0) 08/26/17 07:00 Gran # 4.71 (1.4-6.5) 08/26/17 07:00 Lymph # (Auto) 1.0 (1.2-3.4) L 08/26/17 07:00 [place] # (Auto) 0.5 (0.1-0.6) 08/26/17 07:00 Eos # (Auto) 0.2 (0.0-0.7) 08/26/17 07:00 Baso # (Auto) 0.01 K/mm3 (0.0-2.0) 08/26/17 07:00 PT 10.1 SECONDS (9.4-12.5) 08/23/17 14:30 INR 0.89 (0.93-1.08) L 08/23/17 14:30 APTT 26.3 Seconds (25.1-36.5) 08/24/17 12:20 Sodium 140 mmol/L (132-148) 08/26/17 07:00 Potassium 3.6 mmol/L (3.6-5.0) 08/26/17 07:00 Chloride 106 mmol/L (98-107) 08/26/17 07:00 Carbon Dioxide 26 mmol/L (21-33) 08/26/17 07:00 Anion Gap 12 (10-20) 08/26/17 07:00 BUN 15 mg/dL (7-21) 08/26/17 07:00 Creatinine 0.8 mg/dl (0.7-1.2) 08/26/17 07:00 Est GFR ( Amer) > 60 08/26/17 07:00 Est GFR (Non-Af Amer) > 60 08/26/17 07:00 Random Glucose 99 mg/dL (70-110) 08/26/17 07:00 Calcium 8.7 mg/dL (8.4-10.5) 08/26/17 07:00 Total Bilirubin 0.8 mg/dL (0.2-1.3) 08/26/17 07:00 AST 59 U/L (14-36) H D 08/26/17 07:00 ALT 50 U/L (7-56) 08/26/17 07:00 Alkaline Phosphatase 117 U/L (38-126) 08/26/17 07:00 Total Protein 5.0 g/dL (5.8-8.3) L 08/26/17 07:00 Albumin 2.6 g/dL (3.0-4.8) L 08/26/17 07:00 Globulin 2.4 gm/dL 08/26/17 07:00 Albumin/Globulin Ratio 1.1 (1.1-1.8) 08/26/17 07:00 Urine Color Yellow (YELLOW) 08/26/17 12:00 Urine Appearance Clear (CLEAR) 08/26/17 12:00 Urine pH 6.0 (4.7-8.0) 08/26/17 12:00 Ur Specific [place] 1.020 (1.005-1.035) 08/26/17 12:00 Urine Protein Negative mg/dL (<30 mg/dL) 08/26/17 12:00 Urine Glucose (UA) Negative mg/dL (NEGATIVE) 08/26/17 12:00 Urine Ketones Trace mg/dL (NEGATIVE) H 08/26/17 12:00 Urine Blood Negative (NEGATIVE) 08/26/17 12:00 Urine Nitrate Negative (NEGATIVE) 08/26/17 12:00 Urine Bilirubin Negative (NEGATIVE) 08/26/17 12:00 Urine Urobilinogen 0.2 E.U./dL (<1 E.U./dL) 08/26/17 12:00 Ur Leukocyte Esterase Trace Dl/uL (NEGATIVE) H 08/26/17 12:00 Urine RBC 0 - 2 /hpf (0-2) 08/26/17 12:00 Urine WBC 1 - 3 /hpf (0-6) 08/26/17 12:00 Ur Epithelial Cells 1 - 3 /hpf (0-5) 08/26/17 12:00 Urine Bacteria Few (NEG) 08/26/17 12:00 Blood Type B POSITIVE 08/23/17 14:15 Antibody Screen Negative 08/23/17 14:15 Crossmatch See Detail 08/23/17 14:15 BBK History Checked Patient has bt 08/23/17 14:15 - Constitutional Appears: Well, No Acute Distress - Head Exam Head Exam: ATRAUMATIC, NORMAL INSPECTION, NORMOCEPHALIC - Eye Exam Eye Exam: Normal appearance - Neck Exam Neck Exam: Normal Inspection - Respiratory Exam Respiratory Exam: NORMAL BREATHING PATTERN - Cardiovascular Exam Cardiovascular Exam: absent: JVD - GI/Abdominal Exam GI & Abdominal Exam: absent: Distended - Rectal Exam Rectal Exam: Deferred - Exam Additional comments: Deferred. - Extremities Exam Additional comments: Left hip tenderness positive. - Back Exam Back Exam: NORMAL INSPECTION - Neurological Exam Neurological Exam: Alert, Awake, Oriented x3 - Psychiatric Exam Psychiatric exam: Normal Affect, Normal Mood - Skin Skin Exam: Normal Color Assessment and Plan - Assessment and Plan (Free Text) Assessment: Tachyarrhythmia. Left hip fracture. HTN. COPD. Uterine fibroid. S/P right knee total replacement. Plan: Atenolol 25 mg PO x 1. Continue present management.
[2017-08-27] MEDS: Albuterol-Ipratrop 3 mg / 0.5 (3 ml) UD IH SCH ×4 (01:09→13:09)
[2017-08-27] MEDS: Pantoprazole 20 mg EC Tab PO SCH (05:23)
[2017-08-27] MEDS: Budesonide 0.25 mg/2 ml Inhal Susp UD IH SCH (07:13)
[2017-08-27 07:18] LABS: BASO # 0.01 K/mm3 (0.0-2.0); BASO % 0.2 % (0.0-3.0); EOS # 0.2 (0.0-0.7); EOS % 3.4 % (1.5-5.0); GRAN # 3.81 (1.4-6.5); GRAN % 71.1 % (50.0-68.0); LYMPH # 0.9 (1.2-3.4); LYMPH % 17.4 % (22.0-35.0); MEAN CELL VOLUME 94.4 fl (80.0-105.0); MEAN CORPUSCULAR HEMOGLOBIN 29.7 pg (25.0-35.0); MEAN CORPUSCULAR HGB CONC 31.5 g/dl (31.0-37.0); MEAN PLATELET VOLUME 9.8 fl (7.0-11.0); MONO # 0.4 (0.1-0.6); MONO % 7.9 % (1.0-6.0); RBC 2.69 10^6/uL (3.5-6.1); WHITE BLOOD COUNT 5.4 10^3/ul (4.5-11.0)
[2017-08-27 07:31] LABS: BLOOD UREA NITROGEN 15 mg/dL (7-21); CALCIUM 8.3 mg/dL (8.4-10.5); GFR AFRICAN-AMERICAN > 60; GFR NON-AFRICAN AMERICAN > 60
[2017-08-27 08:02] VITALS: BP 126/77; PULSE 85; RESP 20; O2SAT 97
--- NOTE | 2017-08-27 08:19 | CP.PCM.PN ---
Subjective - Date & Time of Evaluation Date of Evaluation: 08/27/17 Time of Evaluation: 08:12 - Subjective Subjective: Patient POD#3 s/p L hip hemiarthroplasty. Patient AAOx3, sitting up in bed comfortably with hip abduction pillow in place. Patient denies any pain. VSS WBC 5.4 Hgb 8.0 L hip: dressings dry and intact. Dressings removed. Incision clean and intact. There is no erythema or drainage. No signs of infection or cellulitis. Incision cleaned with normal saline and new light dry sterile dressings applied. Patient can actively plantar and dorsiflex. Calf and thigh soft nontender. NVI distally POD #3 s/p L hip hemiarthoplasty Patient cleared from ortho standpoint to discharge today to subacute rehab facility Cont DVT prophylaxis Cont physical therapy, WBAT Cont posterior hip precautions Cont hip abduction pillow at all times while in bed Dressing changes with dry sterile dressings every 3 days. Will follow up with patient at office with Dr. Reddy on September 06. Objective - Vital Signs/Intake and Output Vital Signs (last 24 hours): Temp Pulse Resp BP Pulse Ox 98.7 F 85 20 126/77 97 08/27/17 07:57 08/27/17 07:57 08/27/17 07:57 08/27/17 07:57 08/27/17 07:57 Intake and Output: 08/27/17 08/27/17 06:59 18:59 Intake Total 480 Output Total 300 Balance 180 - Medications Medications: Current Medications Acetaminophen (Tylenol 325mg Tab) 650 mg PO Q6H [facility] Last Admin: 08/27/17 05:23 Dose: 650 mg Albuterol/Ipratropium (Duoneb 3 Mg/0.5 Mg (3 Ml) Ud) 3 ml IH [id number] [facility] Last Admin: 08/27/17 07:13 Dose: 3 ml Atenolol (Tenormin) 25 mg PO DAILY [facility] Last Admin: 08/26/17 10:19 Dose: 25 mg Benzocaine/Menthol (Cepacol Sore Throat) 1 bk MT Q2H PRN PRN Reason: Sore Throat Last Admin: 08/24/17 18:10 Dose: 1 bk Budesonide (Pulmicort Respules) 0.25 mg IH [id number] [facility] Last Admin: 08/27/17 07:13 Dose: 0.25 mg Docusate Sodium (Colace) 100 mg PO BID [facility] Last Admin: 08/26/17 17:29 Dose: 100 mg Enoxaparin Sodium (Lovenox) 40 mg SC DAILY [facility] PRN Reason: Protocol Last Admin: 08/26/17 10:17 Dose: 40 mg Furosemide (Lasix) 40 mg PO DAILY [facility] Last Admin: 08/26/17 10:17 Dose: 40 mg Sodium Chloride (Sodium Chloride 0.9%) 1,000 mls @ 125 mls/hr IV .Q8H [facility] Last Admin: 08/26/17 13:00 Dose: Not Given Losartan Potassium (Cozaar) 100 mg PO DAILY [facility] Last Admin: 08/26/17 10:17 Dose: 100 mg Morphine Sulfate (Morphine) 2 mg IVP Q15M PRN PRN Reason: Pain, moderate (4-7) Ondansetron HCl (Zofran Inj) 4 mg IVP Q6H PRN PRN Reason: Nausea/Vomiting Oxycodone HCl (Oxycodone Immediate Release Tab) 5 mg PO Q4H PRN PRN Reason: Pain, moderate (4-7) Pantoprazole Sodium (Protonix Ec Tab) 20 mg PO 0600,1600 [facility] Last Admin: 08/27/17 05:23 Dose: 20 mg Potassium Chloride (Klor-Con 10) 10 meq PO DAILY [facility] Last Admin: 08/26/17 10:17 Dose: 10 meq Pregabalin (Lyrica) 50 mg PO BID [facility] Last Admin: 08/26/17 17:29 Dose: 50 mg Zolpidem Tartrate (Ambien) 5 mg PO HS PRN; Protocol PRN Reason: Insomnia - Labs Labs: 08/27/17 07:00 08/27/17 07:00 PT 10.1 SECONDS (9.4-12.5) 08/23/17 14:30 INR 0.89 (0.93-1.08) L 08/23/17 14:30 APTT 26.3 Seconds (25.1-36.5) 08/24/17 12:20 Assessment and Plan (1) Closed displaced fracture of left femoral neck Status: Acute
--- NOTE | 2017-08-27 09:09 | PN ---
DATE: 08/26/2017 LOCATION: The patient is in the [facility] in [place], room 566, bed 1. SUBJECTIVE: The patient was admitted with fracture of the hip. She had the hip repair done by Dr. Reddy. The patient has past history of hypertension, chronic obstructive lung disease, gastritis and osteoarthritis. The patient has had a previous right knee replacement. PHYSICAL EXAMINATION VITAL SIGNS: This morning, the patient's pulse is 118, blood pressure 127/78, respiratory rate is 18, O2 saturation is 92% on room air, and temperature is 99.2. LUNGS: Clear. HEART: Normal sinus rhythm. ABDOMEN: Soft. Liver and spleen not palpable. CENTRAL NERVOUS SYSTEM: No focal deficits. LABORATORY DATA: The patient's hemoglobin had dropped to 8.8, possibly postoperative bleeding at the site of the surgery. She is alert and does not have any complaint except for some pain in the shoulders and chest wall. MEDICATIONS: The patient is on Ambien for sleep 5 mg daily. The patient is on losartan 100 mg daily, Lasix 40 mg daily and potassium chloride 10 mEq daily. The patient is on Lovenox for prevention of DVT. Postoperative, the patient is on Lyrica 50 mg b.i.d., morphine IV 2 mg q. 4 hours p.r.n. for pain. The patient wants Tylenol for pain instead of morphine at this time. The patient also on pantoprazole 20 mg p.o. daily. The patient is also on atenolol 25 mg p.o. daily. The patient's heart rate has to monitored frequently to make sure that the patient needs further medications for tachycardia. Her prognosis is good. Overall condition is improving. The patient will be possibly going to the senior living for subacute rehab tomorrow. Maya Priest MD
--- NOTE | 2017-08-27 09:45 | PN ---
DATE: SUBJECTIVE: The patient is an 81-year-old white female. The patient had left hip surgery for fracture of the hip. The patient is seen this morning. She is comfortable. She has no complaints, pain or discomfort at this time. She says that she did stand up yesterday. PHYSICAL EXAMINATION: VITAL SIGNS: Pulse is 85, blood pressure 126/77, respirations are 20, O2 sat 97% on room air. HEENT: Head is normocephalic. NECK: Thyroid is not enlarged. No lymphadenopathy in the neck. LUNGS: Trachea is central. Breath sounds are vesicular. No adventitious sounds. HEART: Normal sinus rhythm. S1 and S2 present. ABDOMEN: Soft. Liver and spleen not palpable. CENTRAL NERVOUS SYSTEM: No focal deficit. EXTREMITIES: The patient has recent surgery of the left hip. LABORATORY DATA: The patient's laboratory findings, hemoglobin to begin with 13.4, currently it is 8.0. The patient is on vitamin and iron supplement. The patient's chemistry is within normal limits. ASSESSMENT AND PLAN: The patient has been evaluated by the orthopedic surgeon and the nurse practitioner physician operating room assistant who works with Dr. Reddy. If the patient is surgically cleared, the patient could go to [facility] for subacute rehab. We will continue current management while she is there. We will see the patient in the retirement. Her medications consist of Ambien for sleep. The patient is on Colace, stool softener. The patient is on losartan 100 mg daily. The patient is on DuoNeb for respiratory treatment, Lasix 40 mg daily. The patient is on Lovenox 40 mg subcu daily for prophylaxis. The patient is taking Lyrica 50 mg b.i.d., pantoprazole 20 mg daily. The patient is on Pulmicort twice a day and atenolol 25 mg daily. The patient will be possibly discharged today and we will follow the patient up in the retirement. Maya Priest MD
[2017-08-27] MEDS ORDERED: Iron Complex Polysacch 150mg Cap PO SCH (10:00)
[2017-08-27] MEDS: Enoxaparin 40 mg Syringe SC SCH (10:24)
[2017-08-27] MEDS: Potassium Chloride 10 mEq ER Tab PO SCH (10:25)
[2017-08-27 10:47] LABS: HEMOGLOBIN 8.3 g/dL (12.0-16.0)
== END 2017-08-27 14:03 | DRG 470 ==
LOC: ED 11:36 → ERH 13:51 → 5RNO 16:30
PROVIDERS: ADMIT Internal Medicine; ATTEND Internal Medicine
PROC: 0SRS0JA Replacement of Left Hip Joint, Femoral Surface with Synthetic Substitute, Uncemented, Open Approach (ICD-10-PCS; principal; 2017-08-24 07:30)
DX: S72.012A Unspecified intracapsular fracture of left femur, initial encounter for closed fracture (principal); J43.9 Emphysema, unspecified; D25.9 Leiomyoma of uterus, unspecified; W19.XXXA Unspecified fall, initial encounter; Y92.003 Bedroom of unspecified non-institutional (private) residence as the place of occurrence of the external cause; I10 Essential (primary) hypertension; K21.9 Gastro-esophageal reflux disease without esophagitis; K29.70 Gastritis, unspecified, without bleeding; M17.11 Unilateral primary osteoarthritis, right knee; Z79.899 Other long term (current) drug therapy; Z96.651 Presence of right artificial knee joint; Z90.49 Acquired absence of other specified parts of digestive tract; Z90.710 Acquired absence of both cervix and uterus; R40.2412 Glasgow coma scale score 13-15, at arrival to emergency department; R00.0 Tachycardia, unspecified

== ENCOUNTER 2018-08-23 13:25 | Outpatient (CLI) | payer MEDICARE | END 2018-08-23 13:26 | disposition home or self-care (01) | LOC: RAD 13:25 ==

== ENCOUNTER 2018-10-01 14:12 | Outpatient (CLI) | payer MEDICARE | END 2018-10-01 14:13 | disposition home or self-care (01) | LOC: LAB 14:12 ==